=== PATIENT | male | born 1990 | race African-American/Black ===

== ENCOUNTER 2023-11-08 08:48 | Emergency (ER) | payer SELFPAY ==
[2023-11-08] MEDS ORDERED: Albuterol 200 PUFF (6.7GM INHALER) ONE (09:06)
== END 2023-11-08 09:20 | disposition home or self-care (01) ==
LOC: MADERS 08:48
DX: J45.909 Unspecified asthma, uncomplicated (principal)
CPT/HCPCS: 99284